=== PATIENT | male | born 1940 | race Caucasian/White ===

== ENCOUNTER 2020-02-24 11:34 | Emergency (ER) | payer OTHER ==
[2016-04-12 10:31] VITALS: Ht 182.9 cm; Wt 77.3 kg
[~2020-02-24] VITALS: Ht 182.9 cm; Wt 77.3 kg
[~2020-02-24 11:34] MED LIST: BETAPACE 80 MG80 MG PO; FLAGYL500 MG PO; MIRALAX17 GM PO; NORVASC10 MG PO
[2020-02-24] MEDS ORDERED: XARELTO20 MG PO (11:56)
[2020-02-24 12:43] LABS: BASOPHILS 0.3 % (0-2); EOSINOPHILS 1.5 % (0-7); HEMATOCRIT 44.1 % (42.0-54.0); HEMOGLOBIN 14.8 g/dL (13.5-17.5); IMMATURE GRANULOCYTES 0.1 % (0-5); MCH 31.8 pg (26.0-34.0); MCHC 33.6 g/dL (31.0-37.0); MCV 94.6 fL (80.0-100.0); MEAN PLATELET VOLUME 11.8 fL (7.4-10.4); MONOCYTES 5.6 % (2-11); NEUTROPHILS 83.5 % (40-80); PLATELET COUNT 120 10x3/uL (130-400); RBC 4.66 10x6/uL (4.20-6.10); RDW 13.6 % (11.5-14.5); WBC 7.4 10x3/uL (4.8-10.8)
[2020-02-24 12:54] LABS: CALC OSMOLALITY 274 mosm/kg (275-300); CALCIUM 8.8 mg/dL (8.5-10.1); CARBON DIOXIDE 28.1 mmol/L (21.0-32.0); CHLORIDE - SERUM 103 mmol/L (98-107); GLUCOSE 116 mg/dL (74-106); POTASSIUM - SERUM 4.3 mmol/L (3.5-5.1); SODIUM 136 mmol/L (136-145); UREA NITROGEN 17 mg/dL (7-18); eGFR NON AFRICAN AMERICAN 76 mL/min (90-120)
[2020-02-24 13:00] LABS: ALBUMIN 4.1 g/dL (3.4-5.0); ALKALINE PHOSPHATASE 66 U/L (30-120); ALT (SGPT) 22 U/L (10-68); BILIRUBIN - TOTAL 0.56 mg/dL (0.2-1.3); PROTEIN - SERUM 7.4 g/dL (6.4-8.2)
[2020-02-24 13:02] LABS: INR 2.17 (0.85-1.17); PROTIME 23.8 SECONDS (11.6-15.0)
[2020-02-24] MEDS ORDERED: KEFLEX500 MG PO (15:11)
[2020-02-24] MEDS ORDERED: HYDROCODON-ACE1 EA10 PO (15:11)
[2020-02-24 15:47] VITALS: BP 162/73
== END 2020-02-24 15:48 | disposition home or self-care (01) ==
LOC: D.ER 11:34
PROVIDERS: Family Medicine
DX: S61.212A Laceration without foreign body of right middle finger without damage to nail, initial encounter (principal); S01.81XA Laceration without foreign body of other part of head, initial encounter; S09.90XA Unspecified injury of head, initial encounter; W01.0XXA Fall on same level from slipping, tripping and stumbling without subsequent striking against object, initial encounter; Y93.9 Activity, unspecified; Y92.9 Unspecified place or not applicable; I10 Essential (primary) hypertension

== ENCOUNTER 2020-03-03 11:50 | Emergency (ER) | payer OTHER ==
[~2020-03-03] VITALS: Ht 182.9 cm; Wt 77.1 kg
[~2020-03-03 11:50] MED LIST changes: +HYDROCODON-ACE1 EA10 PO; +KEFLEX500 MG PO; +XARELTO20 MG PO
[2020-03-03 11:56] VITALS: Ht 182.9 cm; Wt 77.1 kg
[2020-03-03 12:37] LABS: BASOPHILS 0.2 % (0-2); EOSINOPHILS 0.1 % (0-7); HEMATOCRIT 39.7 % (42.0-54.0); HEMOGLOBIN 13.6 g/dL (13.5-17.5); IMMATURE GRANULOCYTES 0.2 % (0-5); LYMPHOCYTES 3.6 % (15-50); MCH 32.2 pg (26.0-34.0); MCHC 34.3 g/dL (31.0-37.0); MCV 94.1 fL (80.0-100.0); MEAN PLATELET VOLUME 11.5 fL (7.4-10.4); MONOCYTES 3.6 % (2-11); NEUTROPHILS 92.3 % (40-80); RBC 4.22 10x6/uL (4.20-6.10); RDW 13.2 % (11.5-14.5); WBC 10.1 10x3/uL (4.8-10.8)
[2020-03-03 12:42] LABS: PLATELET COUNT 147 10x3/uL (130-400)
[2020-03-03 12:48] LABS: CALC OSMOLALITY 279 mosm/kg (275-300); CALCIUM 8.9 mg/dL (8.5-10.1); CARBON DIOXIDE 26.5 mmol/L (21.0-32.0); CHLORIDE - SERUM 103 mmol/L (98-107); CREATININE - SERUM 0.9 mg/dL (0.6-1.3); GLUCOSE 129 mg/dL (74-106); POTASSIUM - SERUM 3.9 mmol/L (3.5-5.1); SODIUM 138 mmol/L (136-145); UREA NITROGEN 17 mg/dL (7-18); eGFR NON AFRICAN AMERICAN 86 mL/min (90-120)
[2020-03-03 13:06] LABS: ALBUMIN 3.6 g/dL (3.4-5.0); ALKALINE PHOSPHATASE 66 U/L (30-120); ALT (SGPT) 22 U/L (10-68); AMYLASE - SERUM 57 U/L (25-115); BILIRUBIN - TOTAL 0.37 mg/dL (0.2-1.3); CKMB 2.6 U/L (0.0-3.6); CREATINE KINASE 144 UL (21-232); LIPASE 100 U/L (73-393); PROTEIN - SERUM 7.1 g/dL (6.4-8.2)
[2020-03-03 13:08] LABS: TROPONIN-I < 0.017 ng/mL (0.000-0.060)
[2020-03-03 13:26] LABS: APTT 41.7 SECONDS (22.8-39.4); INR 2.09 (0.85-1.17); PROTIME 23.2 SECONDS (11.6-15.0)
[2020-03-03] MEDS ORDERED: MIRALAX17 GM PO (15:53)
[2020-03-03 16:49] VITALS: BP 114/63
== END 2020-03-03 16:51 | disposition home or self-care (01) ==
LOC: D.ER 11:50
PROVIDERS: Family Medicine
DX: R10.9 Unspecified abdominal pain (principal); K59.00 Constipation, unspecified; I10 Essential (primary) hypertension; R53.1 Weakness; R29.6 Repeated falls